=== PATIENT | female | born 1985 | race Caucasian/White ===

== ENCOUNTER 2017-09-04 08:54 | Emergency (ER) | payer BC, OTHER ==
[~2017-09-04] VITALS: Ht 160 cm; Wt 70.3 kg
[~2017-09-04 08:54] MED LIST: DEXILANT60 MG PO; METFORMIN HCL500 MG PO; PROGESTERONE100 MG PO; XANAX0.5 MG; XANAX0.5 MG PO
[2017-09-04] MEDS ORDERED: FAMOTIDINE 20 MG/2 ML VIAL IV STA (09:53)
[2017-09-04] MEDS ORDERED: ONDANSETRON HCL INJ 2 MG/ML VIAL IV STA (09:56)
[2017-09-04] MEDS ORDERED: MAGNESIUM/ALUMINUM/SIMETHICONE 30 ML UDC PO ONE (10:00)
[2017-09-04] MEDS ORDERED: LIDOCAINE VISC 2% SOLN 15 ML UDC PO ONE (10:00)
[2017-09-04] MEDS ORDERED: ONDANSETRON HCL 4 MG ORAL DISINTEGRATING TAB SL ONE (10:30)
[2017-09-04 10:31] LABS: BASOPHILS # (AUTO) 0.1 (0.0-0.1); BASOPHILS % 0.4 % (0.0-1.0); CLARITY,URINE CLEAR (CLEAR); COLOR,URINE YELLOW (YELLOW); EOSINOPHILS # (AUTO) 0.1 (0.0-0.4); EOSINOPHILS % 0.5 % (0.0-6.0); HEMATOCRIT 41.6 % (34.2-44.1); HEMOGLOBIN 13.8 g/dL (12.0-16.0); LEUKOCYTE ESTERASE ,URINE NEGATIVE (NEGATIVE); LYMPHOCYTES # (AUTO) 1.8 (1.0-3.2); LYMPHOCYTES % 14.5 % (18.0-39.1); MEAN CORPUSCULAR HEMOGLOBIN 28.1 pg (28-32); MEAN CORPUSCULAR HGB CONC 33.2 g/dL (31-35); MEAN CORPUSCULAR VOLUME 84.7 fL (81-99); MONOCYTES # (AUTO) 0.8 (0.2-0.8); MONOCYTES % 6.1 % (4.4-11.3); NEUTROPHILS # (AUTO) 9.7 (2.1-6.9); NEUTROPHILS % 78.2 % (38.7-80.0); NITRITE,URINE NEGATIVE (NEGATIVE); PLATELET COUNT 373 x10e3/uL (140-360); RED BLOOD COUNT 4.91 x10e6/uL (3.6-5.1); RED CELL DISTRIBUTION WIDTH 12.6 % (11.7-14.4)
[2017-09-04 10:32] LABS: BILIRUBIN,URINE NEGATIVE (NEGATIVE); KETONES,URINE NEGATIVE (NEGATIVE); PREGNANCY TEST, URINE NEGATIVE (NEGATIVE); PROTEIN,URINE DIPSTICK NEGATIVE (NEGATIVE); URINE UROBILINOGEN 0.2 mg/dL (0.2 - 1)
[2017-09-04 10:44] LABS: EPITHELIAL CELLS,URINE RARE /LPF; WBC,URINE (MAN) 0-5 /HPF (0-5)
[2017-09-04 10:47] LABS: ALANINE AMINOTRANSFERASE 256 IU/L (0-55); ALBUMIN 3.9 g/dL (3.5-5.0); ALBUMIN/GLOBULIN RATIO 0.8 (0.8-2.0); ALKALINE PHOSPHATASE 208 IU/L (40-150); AMYLASE 56 U/L (25-125); ANION GAP 17.5 mmol/L (8-16); BLOOD UREA NITROGEN 12 mg/dL (7-26); BUN/CREATININE RATIO 14 (6-25); CALCIUM 10.4 mg/dL (8.4-10.2); CARBON DIOXIDE 24 mmol/L (22-29); CHLORIDE 104 mmol/L (98-107); CREATININE, SERUM 0.83 mg/dL (0.57-1.11); EST GLOMERULAR FILTRATION RATE > 60 ML/MIN (60-); GLUCOSE 102 mg/dL (74-118); LIPASE 46 U/L (8-78); POTASSIUM 4.5 mmol/L (3.5-5.1); SODIUM 141 mmol/L (136-145)
[2017-09-04 10:52] LABS: CREATINE KINASE 56 IU/L (29-168)
[2017-09-04] MEDS ORDERED: KETOROLAC TROMETHAMINE 30 MG/ML VIAL IV STA (11:17)
--- NOTE | 2017-09-04 14:55 | Diagnostic Imaging Report ---
PROCEDURE:LIMITED ABDOMINAL ULTRASOUND COMPARISON:[facility], US, US ABDOMEN COMPLETE, 01/26/2016, 2:49. INDICATIONS:epigastric pain FINDINGS: Liver: 15.3 cm. Increased hepatic parenchymal echogenicity. No focal mass. Main portal vein: 0.9 cm. Hepatopetal flow. Gallbladder: Multiple, mobile, echogenic, shadowing foci are noted in the gallbladder lumen, consistent with small stones. No sludge. No wall thickening, or pericholecystic fluid. Common Bile Duct: 0.7 cm. No echogenic filling defect. Sonographic Powell's sign: Negative Right kidney: 9.3 cm. No solid or cystic mass, echogenic calculi, or hydronephrosis. Normal parenchymal echogenicity. Pancreas: The visualized portions of the pancreas are normal. Inferior vena cava: Normal. Aorta: Normal. Ascites: None. CONCLUSION: 1. cholelithiasis, without sonographic evidence of cholecystitis. 2. Borderline to minimal dilation of the common bile duct. No intraluminal filling defects are identified. MRI abdomen/MRCP is recommended if there is clinical concern for choledocholithiasis. 3. Borderline enlarged liver size, with diffuse steatosis. No focal lesions. Kody Guo M.D. Dictated by: Kody Guo M.D. on 09/04/2017 at 14:56 Electronically approved by: Kody Guo M.D. on 09/04/2017 at 14:56
[2017-09-04 15:21] VITALS: BP 114/79
== END 2017-09-04 15:41 | disposition home or self-care (01) ==
LOC: ER 08:54
DX: R10.13 Epigastric pain (principal); R11.0 Nausea; K80.20 Calculus of gallbladder without cholecystitis without obstruction; K21.9 Gastro-esophageal reflux disease without esophagitis; E28.2 Polycystic ovarian syndrome
CPT/HCPCS: 36415; 76705; 80053; 81001; 81025; 82150; 82550; 82553; 83690; 84484; 85025; 93005; 99284; J1885

== ENCOUNTER 2017-09-06 09:53 | Inpatient (IN) | payer BC, OTHER ==
[~2017-09-06] VITALS: Ht 160 cm; Wt 73.1 kg
--- OUTSIDE RECORDS SUMMARY | 2017-09-06 09:56 | XMS REPORT ---
Author Author [facility] Address Unknown Phone Unavailable Care Team Providers Care Student Officer Name Role Phone LIZET VALDEZ Unavailable Unavailable Problems This patient has no known problems. Allergies, Adverse Reactions, Alerts This patient has no known allergies or adverse reactions. Medications This patient has no known medications. Results Test Description Test Time Test Comments Text Results Atomic Results Result Comments US ABDOMEN LIMITED [place] [address] Patient Name: KARISSA VASQUEZ MR #: [id number] : 1985 Age/Sex: 32/F Req #: [id number] Adm Physician: Ordered by: LIZET VALDEZ MD Report #: [id number] Location: ER Room/Bed: Procedure: [id number] US/US ABDOMEN LIMITED Exam Date: 09/04/17 Exam Time: 1343 REPORT STATUS: Signed PROCEDURE: LIMITED ABDOMINAL ULTRASOUND COMPARISON: [facility], US, US ABDOMEN COMPLETE, 01/26/2016, 2:49. INDICATIONS: epigastric pain FINDINGS: Liver: 15.3 cm. Increased hepatic parenchymal echogenicity. No focal mass. Main portal vein: 0.9 cm. Hepatopetal flow. Gallbladder: Multiple, mobile, echogenic, shadowing foci are noted in the gallbladder lumen, consistent with small stones. No sludge. No wall thickening, or pericholecystic fluid. Common Bile Duct: 0.7 cm. No echogenic filling defect. Sonographic Powell's sign: Negative Right kidney: 9.3 cm. No solid or cystic mass, echogenic calculi, or hydronephrosis. Normal parenchymal echogenicity. Pancreas: The visualized portions of the pancreas are normal. Inferior vena cava: Normal. Aorta: Normal. Ascites: None. CONCLUSION: 1. cholelithiasis, without sonographic evidence of cholecystitis. 2. Borderline to minimal dilation of the common bile duct. No intraluminal filling defects are identified. MRI abdomen/MRCP is recommended if there is clinical concern for choledocholithiasis. 3. Borderline enlarged liver size, with diffuse steatosis. No focal lesions. Rachel Guo M.D. Dictated by: Rachel Guo M.D. on 09/04/2017 at 14:56 Electronically approved by: Rachel Guo M.D. on 09/04/2017 at 14:56 Dictated By: RACHEL GUO MD [id number] Transcribed By: HENRY on 09/04/17 1456 COPY TO: LIZET VALDEZ MD
--- OUTSIDE RECORDS SUMMARY | 2017-09-06 09:56 | XMS REPORT | Continuity of Care Document ---
Author Author [facility] Organization [facility] Address [address] [place] [address] Phone Unavailable Care Team Providers Care It Consultant Name Role Phone NO, PCP PCP Unavailable Insurance Providers Guarantor Amanda Arnold Address [address] [place] [address] Email [email or web address] Payer [facility] Policy Number [id number] Subscriber's Name JameAmanda Faust Relationship 18 Self / Same As Patient Group Number [id number] Advance Directives Directive Response Recorded Date/Time Does the patient have an advance directive? No 06/18/13 2:27pm If yes, is advance directive on file with [facility]? No 06/18/13 2:27pm If not on file with [facility] will patient provide a copy? No 06/18/13 2:27pm Do you have a Directive to Physician? No 09/04/17 10:11am Do you have a Medical Power of Business Education Instructor? No 09/04/17 10:11am Do you have an out of hospital Do Not Resuscitate Order? No 09/04/17 10:11am Do you have any special needs we should be aware of? No 09/04/17 10:11am Do you have a support person here with you today? Yes 09/04/17 10:11am Did patient receive Notice of Privacy Practices? Yes 09/04/17 10:11am Did patient receive patient rights and responsibilities? Yes 09/04/17 10:11am Problems No problem information available. Medications Current Home Medications Medication Dose Units Route Directions Days Qty Instructions Start Date Dexlansoprazole (Dexilant) 60 Mg 60 Mg Oral Daily THERAPEUTIC INTERCHANGE WITH PROTONIX PER [facility] Metformin Hcl 500 Mg Tablet 500 Mg Oral Twice A Day 60 Tab Progesterone,Micronized (Progesterone) 100 Mg Capsule 100 Mg Oral Daily Past Home Medications Medication Directions Ordered Status Alprazolam (Xanax) 0.5 Mg Tablet, as needed for Anxiety Discontinued Alprazolam (Xanax) 0.5 Mg Tablet, 1 Mg Oral As Needed Discontinued Social History No social history information available. Hospital Discharge Instructions No hospital discharge instruction information available. Plan of Care Discharge Date 09/04/17 3:41pm Disposition HOME, SELF-CARE Condition at Discharge Stable Instructions/Education Provided Abdominal Pain - Adult Cholelithiasis Forms Provided Work/School Excuse Prescriptions See Medication Section Referrals BOLIVAR MENDOZA MD Order Date: Call for an appointment Address: [address] [place] [address] [address] [place] [address] DOMENICO AGUILAR MD Order Date: Call for an appointment Address: [address] [place] [address] [address] [place] [address] Additional Instructions/Education Take medication as prescribed Follow up with PCP in about 2 days Return to ER if worsening of symptoms Functional Status No functional status information available. Allergies, Adverse Reactions, Alerts No known allergies. Immunizations No immunization information available. Vital Signs Acute Vital Signs Vital Response Date/Time Pulse Pulse Rate (adult) 63 bpm (60 - 90) 09/04/2017 3:21pm Respiratory Rate 18 bpm (12 - 24) 09/04/2017 3:21pm Blood Pressure 114/79 mm Hg 09/04/2017 3:21pm Height 5 ft 3 in 09/04/2017 9:45am Weight 155 lb 09/04/2017 9:45am Body Mass Index 27.5 kg/m^2 09/04/2017 9:45am Results Laboratory Results Test Name Result Units Flags Reference Collection Date/Time Result Date/ Time Comments White Blood Count 12.42 x10e3/uL H 4.8-10.8 09/04/2017 10:05am 2017 10:32am Red Blood Count 4.91 x10e6/uL 3.6-5.1 09/04/2017 10:09/04/2017 10: 32am Hemoglobin 13.8 g/dL 12.0-16.0 09/04/2017 10:09/04/2017 10:32am Hematocrit 41.6 % 34.2-44.1 09/04/2017 10:09/04/2017 10:32am Mean Corpuscular Volume 84.7 fL 81-99 09/04/2017 10:09/04/2017 10: 32am Mean Corpuscular Hemoglobin 28.1 pg 28-32 09/04/2017 10:2017 10:32am Mean Corpuscular Hemoglobin Concent 33.2 g/dL 31-35 09/04/2017 10:09/04/2017 10:32am Red Cell Distribution Width 12.6 % 11.7-14.4 09/04/2017 10:2017 10:32am Platelet Count 373 x10e3/uL H 140-360 09/04/2017 10:09/04/2017 10: 32am Neutrophils (%) (Auto) 78.2 % 38.7-80.0 09/04/2017 10:09/04/2017 10:32am Lymphocytes (%) (Auto) 14.5 % L 18.0-39.1 09/04/2017 10:09/04/2017 10:32am Monocytes (%) (Auto) 6.1 % 4.4-11.3 09/04/2017 10:09/04/2017 10: 32am Eosinophils (%) (Auto) 0.5 % 0.0-6.0 09/04/2017 10:09/04/2017 10: 32am Basophils (%) (Auto) 0.4 % 0.0-1.0 09/04/2017 10:09/04/2017 10: 32am IM GRANULOCYTES % 0.3 % 0.0-1.0 09/04/2017 10:09/04/2017 10:32am Neutrophils # (Auto) 9.7 H 2.1-6.9 09/04/2017 10:09/04/2017 10: 32am Lymphocytes # (Auto) 1.8 1.0-3.2 09/04/2017 10:0509/04/2017 10: 32am Monocytes # (Auto) 0.8 0.2-0.8 09/04/2017 10:0509/04/2017 10:32am Eosinophils # (Auto) 0.1 0.0-0.4 09/04/2017 10:09/04/2017 10: 32am Basophils # (Auto) 0.1 0.0-0.1 09/04/2017 10:09/04/2017 10:32am Absolute Immature Granulocyte (auto 0.04 x10e3/uL 0-0.1 09/04/2017 10: 0509/04/2017 10:32am Urine Color YELLOW YELLOW 09/04/2017 10:09/04/2017 10:32am Urine Clarity CLEAR CLEAR 09/04/2017 10:09/04/2017 10:32am Urine Specific [place] 1.020 1.010-1.025 09/04/2017 10:052017 10:32am Urine pH 8 H 5 - 7 09/04/2017 10:0509/04/2017 10:32am Urine Leukocyte Esterase NEGATIVE NEGATIVE 09/04/2017 10:052017 10:32am Urine Nitrite NEGATIVE NEGATIVE 09/04/2017 10:0509/04/2017 10: 32am Urine Protein NEGATIVE NEGATIVE 09/04/2017 10:0509/04/2017 10: 32am Urine Glucose (UA) NEGATIVE NEGATIVE 09/04/2017 10:0509/04/2017 10 :32am Urine Ketones NEGATIVE NEGATIVE 09/04/2017 10:0509/04/2017 10: 32am Urine Urobilinogen 0.2 mg/dL 0.2 - 1 09/04/2017 10:0509/04/2017 10: 32am Urine Bilirubin NEGATIVE NEGATIVE 09/04/2017 10:0509/04/2017 10: 32am Urine Blood TRACE H NEGATIVE 09/04/2017 10:0509/04/2017 10:32am Urine WBC 0-5 /HPF 0-5 09/04/2017 10:0509/04/2017 10:45am Urine RBC 6-10 /HPF H 0-5 09/04/2017 10:0509/04/2017 10:45am Urine Bacteria NONE /HPF NONE 09/04/2017 10:09/04/2017 10:45am Urine Epithelial Cells RARE /LPF NONE 09/04/2017 10:09/04/2017 10: 45am Urine Test NEGATIVE NEGATIVE 09/04/2017 10:09/04/2017 10:32am Sodium Level 141 mmol/L 136-145 09/04/2017 10:09/04/2017 10:49am Potassium Level 4.5 mmol/L 3.5-5.1 09/04/2017 10:09/04/2017 10: 49am Chloride Level 104 mmol/L 98-107 09/04/2017 10:09/04/2017 10:49am Carbon Dioxide Level 24 mmol/L 22-29 09/04/2017 10:09/04/2017 10: 49am Anion Gap 17.5 mmol/L H 8-16 09/04/2017 10:09/04/2017 10:49am Blood Urea Nitrogen 12 mg/dL 7-26 09/04/2017 10:09/04/2017 10: 49am Creatinine 0.83 mg/dL 0.57-1.11 09/04/2017 10:09/04/2017 10:49am BUN/Creatinine Ratio 14 6-25 09/04/2017 10:09/04/2017 10:49am Estimat Glomerular Filtration Rate > 60 ML/MIN 60- 09/04/2017 10:09/04/2017 10:49am Ranges were taken from the National Kidney Disease Education Program and the National Kidney Foundation literature. Reference ranges: 60 or greater: Normal 16-59 (for 3 consecutive months): Chronic kidney disease 15 or less: Kidney failure Glucose Level 102 mg/dL 74-118 09/04/2017 10:09/04/2017 10:49am Calcium Level 10.4 mg/dL H 8.4-10.2 09/04/2017 10:09/04/2017 10: 49am Total Bilirubin 1.6 mg/dL H 0.2-1.2 09/04/2017 10:09/04/2017 10: 49am Aspartate Amino Transf (AST/SGOT) 394 IU/L H 5-34 09/04/2017 10:2018 10:49am Alanine Aminotransferase (ALT/SGPT) 256 IU/L H 0-55 09/04/2017 10:05am 09/04/2017 10:49am Total Protein 8.9 g/dL H 6.5-8.1 09/04/2017 10:0509/04/2017 10:49am Albumin 3.9 g/dL 3.5-5.0 09/04/2017 10:05am 09/04/2017 10:49am Globulin 5.0 g/dL H 2.3-3.5 09/04/2017 10:05am 09/04/2017 10:49am Albumin/Globulin Ratio 0.8 0.8-2.0 09/04/2017 10:05am 09/04/2017 10: 49am Alkaline Phosphatase 208 IU/L H 40-150 09/04/2017 10:05am 09/04/2017 10: 49am Creatine Kinase 56 IU/L 29-168 09/04/2017 10:05am 09/04/2017 10:55am Creatine Kinase MB 0.50 ng/mL 0-5.0 09/04/2017 10:05am 09/04/2017 10: 59am Troponin I < 0.001 ng/mL 0-0.300 09/04/2017 10:05am 09/04/2017 10:59am Amylase Level 56 U/L 25-125 09/04/2017 10:05am 09/04/2017 10:49am Lipase 46 U/L 8-78 09/04/2017 10:05am 09/04/2017 10:49am Procedures Procedure Status Date Provider(s) US abdomen limited Active 09/04/17 LIZET VALDEZ MD Encounters Encounter Location Arrival/Admit Date Discharge/Depart Date Attending Provider Departed Emergency Room [facility] 09/04/17 8:54am 3:41pm LIZET VALDEZ MD
[2017-09-06] MEDS ORDERED: SODIUM CHLORIDE 0.9% 1000ML 1,000 ML IV STA (10:06)
[2017-09-06] MEDS ORDERED: PRENATAL TABLE1 EAC1 PO (10:06)
[2017-09-06] MEDS ORDERED: ONDANSETRON HCL INJ 2 MG/ML VIAL IV STA (10:06)
[2017-09-06] MEDS ORDERED: PANTOPRAZOLE 40 MG 10ML VIAL IV STA (10:06)
[2017-09-06 10:33] LABS: BASOPHILS % 0.4 % (0.0-1.0); EOSINOPHILS # (AUTO) 0.1 (0.0-0.4); EOSINOPHILS % 0.5 % (0.0-6.0); HEMATOCRIT 39.2 % (34.2-44.1); HEMOGLOBIN 12.9 g/dL (12.0-16.0); LYMPHOCYTES # (AUTO) 1.3 (1.0-3.2); MEAN CORPUSCULAR HEMOGLOBIN 28.4 pg (28-32); MEAN CORPUSCULAR HGB CONC 32.9 g/dL (31-35); MEAN CORPUSCULAR VOLUME 86.3 fL (81-99); MONOCYTES # (AUTO) 0.5 (0.2-0.8); NEUTROPHILS # (AUTO) 7.4 (2.1-6.9); NEUTROPHILS % 79.8 % (38.7-80.0); PLATELET COUNT 328 x10e3/uL (140-360); RED BLOOD COUNT 4.54 x10e6/uL (3.6-5.1); RED CELL DISTRIBUTION WIDTH 12.7 % (11.7-14.4)
[2017-09-06] MEDS ORDERED: ONDANSETRON HCL 4 MG ORAL DISINTEGRATING TAB PO ONE (10:45)
[2017-09-06 10:54] LABS: ALANINE AMINOTRANSFERASE 974 IU/L (0-55); ALBUMIN 3.7 g/dL (3.5-5.0); ALBUMIN/GLOBULIN RATIO 0.8 (0.8-2.0); ALKALINE PHOSPHATASE 397 IU/L (40-150); AMYLASE 37 U/L (25-125); ANION GAP 17.9 mmol/L (8-16); BLOOD UREA NITROGEN 14 mg/dL (7-26); BUN/CREATININE RATIO 16 (6-25); CALCIUM 9.9 mg/dL (8.4-10.2); CARBON DIOXIDE 25 mmol/L (22-29); CHLORIDE 100 mmol/L (98-107); EST GLOMERULAR FILTRATION RATE > 60 ML/MIN (60-); GLUCOSE 131 mg/dL (74-118); LIPASE 16 U/L (8-78); POTASSIUM 3.9 mmol/L (3.5-5.1); SODIUM 139 mmol/L (136-145)
[2017-09-06 10:57] LABS: CLARITY,URINE SL CLOUDY (CLEAR); COLOR,URINE YELLOW (YELLOW)
[2017-09-06 10:58] LABS: BILIRUBIN,URINE 3+ (NEGATIVE); KETONES,URINE 2+ (NEGATIVE); LEUKOCYTE ESTERASE ,URINE 1+ (NEGATIVE); NITRITE,URINE NEGATIVE (NEGATIVE); PROTEIN,URINE DIPSTICK 1+ (NEGATIVE); URINE UROBILINOGEN 0.2 mg/dL (0.2 - 1)
[2017-09-06 11:01] LABS: BACTERIA,URINE MODERATE /HPF; EPITHELIAL CELLS,URINE MODERATE /LPF
[2017-09-06] MEDS ORDERED: PROMETHAZINE 12.5MG/ NACL 0.9% 12.5 MG/50 ML BAG IV ONE (11:30)
[2017-09-06] MEDS ORDERED: HYDROMORPHONE 1MG/1ML INJ IV PRN (12:00)
[2017-09-06] MEDS ORDERED: ONDANSETRON HCL INJ 2 MG/ML VIAL IV PRN (12:00)
[2017-09-06] MEDS ORDERED: PIPER-TAZ 3.375 GM / NS 50ML IV SCH (12:00)
[2017-09-06] MEDS ORDERED: ONDANSETRON HCL 4 MG ORAL DISINTEGRATING TAB SL PRN (12:45)
--- NOTE | 2017-09-06 14:14 | Diagnostic Imaging Report ---
EXAM: Magnetic Resonance Cholangiopancreatography (M.R.C.P.) INDICATION: \S\R/O CBD STONE COMPARISON: Abdominal ultrasound 09/04/2017 TECHNIQUE: Multiplanar, multisequence MRCP was performed, with sequences including coronal turbo spin-echo T1-weighted scans, [facility] MRCP scans, coronal spin, coronal MPR 2, SMRCP 3D HR, [facility] MRCP [place]. IV Contrast: None Oral Contrast: None Medications: None COMPLICATIONS: None FINDINGS: LOWER THORAX: Unremarkable. HEPATOBILIARY: No focal hepatic lesions. Common bile duct measures up to 0.8 cm with gradual tapering into the pancreatic head. There is extension into the common hepatic duct at the level of the liver measuring 0.8 cm. GALLBLADDER: Scattered gallstones and sludge. No wall thickening. SPLEEN: No splenomegaly. PANCREAS: No focal masses or ductal dilatation. ADRENALS: No adrenal nodules KIDNEYS/URETERS: No hydronephrosis. No cystic or solid mass lesions. No stones. GI TRACT: No abnormal distention, wall thickening, or evidence of bowel obstruction. LYMPH NODES: No lymphadenopathy. VESSELS: Unremarkable. PERITONEUM / RETROPERITONEUM: No free air or fluid. BONES: Unremarkable. SOFT TISSUES: Unremarkable. IMPRESSION: 1. Dilated common hepatic and bile duct measuring up to 0.8 cm with gradual tapering into the pancreas. No choledocholithiasis is identified. 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 2. Cholelithiasis without evidence of acute cholecystitis. Signed by: Dr. Jesus Alicea M.D. on 09/06/2017 2:10 PM
[2017-09-06 14:40] VITALS: BP 117/74
[2017-09-06] MEDS: D5.45%NS/KCL 20MEQ 1,000 ML IV SCH (15:03)
[2017-09-06 16:00] VITALS: BP 119/69
[2017-09-06] MEDS: LEVOFLOXACIN 500MG/D5W 100ML 100 ML IV SCH (16:23)
[2017-09-06] MEDS: HYDROCODONE/APAP 10MG-325MG TAB PO PRN ×2 (18:23→23:00)
[2017-09-06 20:00] VITALS: BP 124/78
[2017-09-06] MEDS ORDERED: SODIUM CHLORIDE 0.9% 50ML 50 ML ONE (22:04)
[2017-09-06 23:11] VITALS: BP 124/78
[2017-09-07] VITALS (7 sets, daily range): BP systolic 96–115; BP diastolic 51–77
[2017-09-07] MEDS: PROMETHAZINE HCL (IM) 25 MG/ML VIAL IV PRN ×3 (00:10→21:58)
[2017-09-07] MEDS: D5.45%NS/KCL 20MEQ 1,000 ML IV SCH ×2 (04:40→14:36)
[2017-09-07] MEDS: FAMOTIDINE 20 MG/2 ML VIAL IV SCH ×3 (06:09→16:45)
[2017-09-07 06:30] LABS: BASOPHILS % 0.5 % (0.0-1.0); EOSINOPHILS # (AUTO) 0.1 (0.0-0.4); EOSINOPHILS % 2.1 % (0.0-6.0); HEMATOCRIT 36.7 % (34.2-44.1); HEMOGLOBIN 11.6 g/dL (12.0-16.0); LYMPHOCYTES # (AUTO) 2.4 (1.0-3.2); LYMPHOCYTES % 41.1 % (18.0-39.1); MEAN CORPUSCULAR HGB CONC 31.6 g/dL (31-35); MEAN CORPUSCULAR VOLUME 88.6 fL (81-99); MONOCYTES # (AUTO) 0.2 (0.2-0.8); MONOCYTES % 3.5 % (4.4-11.3); NEUTROPHILS # (AUTO) 2.9 (2.1-6.9); NEUTROPHILS % 50.2 % (38.7-80.0); PLATELET COUNT 209 x10e3/uL (140-360); RED BLOOD COUNT 4.14 x10e6/uL (3.6-5.1); RED CELL DISTRIBUTION WIDTH 12.9 % (11.7-14.4)
[2017-09-07 06:51] LABS: INR 1.1; PARTIAL THROMBOPLASTIN TIME 30.2 seconds (23.8-35.5); PROTHROMBIN TIME 13.4 seconds (11.9-14.5)
[2017-09-07 07:06] LABS: ALANINE AMINOTRANSFERASE 567 IU/L (0-55); ALBUMIN 2.9 g/dL (3.5-5.0); ALBUMIN/GLOBULIN RATIO 0.8 (0.8-2.0); ALKALINE PHOSPHATASE 292 IU/L (40-150); AMYLASE 36 U/L (25-125); ANION GAP 10.3 mmol/L (8-16); BLOOD UREA NITROGEN 9 mg/dL (7-26); BUN/CREATININE RATIO 10 (6-25); CALCIUM 9.3 mg/dL (8.4-10.2); CARBON DIOXIDE 28 mmol/L (22-29); CHLORIDE 104 mmol/L (98-107); CREATININE, SERUM 0.93 mg/dL (0.57-1.11); EST GLOMERULAR FILTRATION RATE > 60 ML/MIN (60-); GLUCOSE 94 mg/dL (74-118); LIPASE 20 U/L (8-78); POTASSIUM 4.3 mmol/L (3.5-5.1); SODIUM 138 mmol/L (136-145)
[2017-09-07 07:31] LABS: BAND NEUTROPHILS % (MANUAL) 2 %; LYMPHOCYTES % (MANUAL) 37 % (19-48); MONOCYTES % (MANUAL) 3 % (3.4-9.0); NEUTROPHILS % (MANUAL) 58 % (40-74); PLATELET ESTIMATE ADEQUATE; PLATELET MORPHOLOGY COMMENT NORMAL; RBC MORPHOLOGY COMMENT NORMAL
[2017-09-07] MEDS: LEVOFLOXACIN 500MG/D5W 100ML 100 ML IV SCH (14:53)
[2017-09-07] MEDS: HYDROCODONE/APAP 10MG-325MG TAB PO PRN ×2 (14:54→21:58)
[2017-09-07] MEDS ORDERED: CEFTRIAXONE SOD 1 GM VIAL IV SCH (18:30)
[2017-09-07] MEDS ORDERED: SODIUM CHLORIDE 0.9% 50ML 50 ML ONE (21:54)
[2017-09-08] VITALS (7 sets, daily range): BP systolic 113–132; BP diastolic 68–83
[2017-09-08 06:50] LABS: BASOPHILS % 0.8 % (0.0-1.0); EOSINOPHILS # (AUTO) 0.2 (0.0-0.4); EOSINOPHILS % 4.2 % (0.0-6.0); HEMATOCRIT 34.5 % (34.2-44.1); HEMOGLOBIN 11.2 g/dL (12.0-16.0); LYMPHOCYTES # (AUTO) 1.8 (1.0-3.2); LYMPHOCYTES % 35.3 % (18.0-39.1); MEAN CORPUSCULAR HEMOGLOBIN 28.7 pg (28-32); MEAN CORPUSCULAR HGB CONC 32.5 g/dL (31-35); MEAN CORPUSCULAR VOLUME 88.5 fL (81-99); MONOCYTES # (AUTO) 0.6 (0.2-0.8); MONOCYTES % 11.5 % (4.4-11.3); NEUTROPHILS # (AUTO) 2.5 (2.1-6.9); NEUTROPHILS % 47.8 % (38.7-80.0); PLATELET COUNT 231 x10e3/uL (140-360)
[2017-09-08 07:18] LABS: ALANINE AMINOTRANSFERASE 454 IU/L (0-55); ALKALINE PHOSPHATASE 315 IU/L (40-150); ANION GAP 12.1 mmol/L (8-16); BILIRUBIN,DIRECT 2.4 mg/dL (0.0-0.5); BLOOD UREA NITROGEN 6 mg/dL (7-26); BUN/CREATININE RATIO 7 (6-25); CALCIUM 9.2 mg/dL (8.4-10.2); CARBON DIOXIDE 27 mmol/L (22-29); CHLORIDE 106 mmol/L (98-107); CREATININE, SERUM 0.88 mg/dL (0.57-1.11); EST GLOMERULAR FILTRATION RATE > 60 ML/MIN (60-); GLUCOSE 98 mg/dL (74-118); POTASSIUM 4.1 mmol/L (3.5-5.1); SODIUM 141 mmol/L (136-145)
[2017-09-08] MEDS: FAMOTIDINE 20 MG/2 ML VIAL IV SCH ×2 (07:44→17:00)
[2017-09-08] MEDS: D5.45%NS/KCL 20MEQ 1,000 ML IV SCH ×2 (09:15→17:16)
[2017-09-08] MEDS ORDERED: BUPIVACAINE 0.25%/EPI 30ML SDV INJ ONE (14:54)
[2017-09-08] MEDS ORDERED: IOPAMIDOL 610MG/1ML 300 MG/ML VIAL IV ONE (14:54)
[2017-09-08] MEDS ORDERED: ACETAMINOPHEN 1000 MG/100 ML IV PRN (16:45)
[2017-09-08] MEDS ORDERED: FENTANYL CITRATE/PF 100MCG/2 ML INJ ONE ×2 (17:14→19:39)
[2017-09-08] MEDS ORDERED: METOCLOPRAMIDE HCL 10 MG/2ML VIAL ONE (17:14)
[2017-09-08] MEDS: HYDROMORPHONE 2MG/ML INJ IV PRN (18:04)
[2017-09-08] MEDS: CEFTRIAXONE SOD 1 GM VIAL IV SCH (18:19)
[2017-09-08] MEDS: PANTOPRAZOLE 40 MG 10ML VIAL IV SCH (18:19)
--- NOTE | 2017-09-08 18:24 | Operative Report ---
DATE OF PROCEDURE: September 08, 2017 PREOPERATIVE DIAGNOSES 1. Cholecystitis. 2. Cholelithiasis. 3. Rule out common bile duct stones. POSTOPERATIVE DIAGNOSES 1. Cholecystitis. 2. Cholelithiasis. 3. Choledocholithiasis. OPERATION PERFORMED: Laparoscopic cholecystectomy with intraoperative cholangiograms. DISHWASHING MACHINE OPERATOR: EMILIA Reed. ANESTHESIA: General. COMPLICATIONS: None. ESTIMATED BLOOD LOSS: Minimal. DESCRIPTION OF PROCEDURE: With the patient lying in bed in supine position under good general endotracheal anesthesia, the abdomen was prepped with Betadine solution and draped in the usual manner. A Veress needle was introduced into the umbilicus and pneumoperitoneum was established without any difficulty. An 11-mm trocar was placed into the umbilicus and a 10-mm video laparoscope was placed into the intraabdominal cavity. Under direct vision, three 5-mm trocars were placed in the right subcostal region. Video laparoscopy at this point revealed acutely distended, tense gallbladder that appeared to contain multiple stones. The rest of the abdominal exploration was within normal limits. The peritoneum overlying the neck of the gallbladder was then opened and the cystic duct was identified. The cystic duct was followed to its junction with the common duct. The cystic duct was then circumferentially dissected away from the common duct and a clip was placed at the neck of the gallbladder. A small opening was then made into the cystic duct and a stone was retrieved from the distal cystic duct. After this was done, a cholangiocatheter was placed into the cystic duct and using fluoroscopy, half-strength dye was injected into the biliary tree. This showed no flow of dye into the duodenum with meniscus sign at the distal common duct representing what appeared to be a small stone impacted in the distal common duct. There were no other defects identified. The cholangiocatheter was then removed and the cystic duct was ligated with an Endoloop of 0-PDS and 2 clips. The cystic artery was similarly doubly clipped and divided. The gallbladder was then slowly and carefully taken off of the liver bed using the cautery scissors and perfect hemostasis was ascertained. The gallbladder was placed in a pouch and removed through the umbilicus without any difficulty. Video laparoscopy was then again carried out. The liver bed was found to perfectly dry. All of the excess fluid was aspirated. The pneumoperitoneum was evacuated and all the trocars were removed under direct vision. The midline fascia at the umbilicus was then closed with a [id number] of 0-Vicryl. All layers were infiltrated on the way out with solution of 0.25% Marcaine. Subcutaneous tissue was approximated with 3-0 Vicryl and the skin was closed with subcuticular 5-0 Vicryl. Benzoin, Steri-Strips and Band-Aids were applied. The sponge, lap and needle count was correct. The patient tolerated the procedure well and returned to the recovery room in stable condition. The patient will have to undergo an ERCP tomorrow for removal of the distal common bile duct stone which he was aware of was the possibility before the surgery. Job#: [id number] ABRAM
[2017-09-08] MEDS ORDERED: GLYCOPYRROLATE INJ 1MG/ 5 ML SYR ONE (18:44)
[2017-09-08] MEDS ORDERED: SEVOFLURANE INHAL SOLN 250 ML PEN BTL ONE (18:44)
[2017-09-08] MEDS ORDERED: PROPOFOL IV EMULSION 10 MG/ML 20 ML VIAL ONE (18:44)
[2017-09-08] MEDS ORDERED: DEXAMETHASONE SOD PHOS INJ 4 MG/ML VIAL ONE (18:44)
[2017-09-08] MEDS ORDERED: ONDANSETRON HCL INJ 2 MG/ML VIAL ONE (18:44)
[2017-09-08] MEDS ORDERED: LIDOCAINE HCL 2% LOCAL INJ 5 ML SDV VIAL INJ ONE (18:44)
[2017-09-08] MEDS ORDERED: ESMOLOL HCL 100MG/10ML 10 MG/ML VIAL ONE (18:44)
[2017-09-08] MEDS ORDERED: NEOSTIGMINE 5 MG/5ML SYR ONE (18:44)
[2017-09-08] MEDS ORDERED: ROCURONIUM BROMIDE 10 MG/ML 5ML VIAL ONE (18:44)
[2017-09-08] MEDS ORDERED: SODIUM CHLORIDE 0.9% 50ML 50 ML ONE (19:02)
[2017-09-08] MEDS: PROMETHAZINE HCL (IM) 25 MG/ML VIAL IV PRN (19:05)
[2017-09-08] MEDS: HYDROCODONE/APAP 10MG-325MG TAB PO PRN (19:20)
[2017-09-08] MEDS ORDERED: MIDAZOLAM HCL 2 MG/2 ML VIAL ONE (19:39)
[2017-09-09] MEDS ORDERED: SODIUM CHLORIDE 0.9% 50ML 50 ML ONE ×5 (00:03→23:26)
[2017-09-09] MEDS: PROMETHAZINE HCL (IM) 25 MG/ML VIAL IV PRN ×5 (00:11→23:32)
[2017-09-09] MEDS: HYDROCODONE/APAP 10MG-325MG TAB PO PRN ×2 (00:11→23:04)
[2017-09-09 00:23] VITALS: BP 114/76
[2017-09-09] MEDS: D5.45%NS/KCL 20MEQ 1,000 ML IV SCH (02:40)
[2017-09-09 05:45] VITALS: BP 115/70
[2017-09-09] MEDS: HYDROMORPHONE 2MG/ML INJ IV PRN ×2 (06:05→10:54)
[2017-09-09 06:11] LABS: BASOPHILS % 0.3 % (0.0-1.0); EOSINOPHILS % 0.1 % (0.0-6.0); HEMATOCRIT 36.9 % (34.2-44.1); LYMPHOCYTES # (AUTO) 1.3 (1.0-3.2); LYMPHOCYTES % 16.1 % (18.0-39.1); MEAN CORPUSCULAR HEMOGLOBIN 28.3 pg (28-32); MEAN CORPUSCULAR HGB CONC 32.5 g/dL (31-35); MONOCYTES # (AUTO) 0.9 (0.2-0.8); MONOCYTES % 11.5 % (4.4-11.3); NEUTROPHILS # (AUTO) 5.7 (2.1-6.9); NEUTROPHILS % 71.7 % (38.7-80.0); PLATELET COUNT 289 x10e3/uL (140-360); RED BLOOD COUNT 4.24 x10e6/uL (3.6-5.1); RED CELL DISTRIBUTION WIDTH 13.1 % (11.7-14.4)
[2017-09-09 06:32] LABS: ALANINE AMINOTRANSFERASE 487 IU/L (0-55); ALBUMIN 3.2 g/dL (3.5-5.0); ALBUMIN/GLOBULIN RATIO 0.9 (0.8-2.0); ALKALINE PHOSPHATASE 434 IU/L (40-150); AMYLASE 853 U/L (25-125); ANION GAP 17.6 mmol/L (8-16); BLOOD UREA NITROGEN 6 mg/dL (7-26); BUN/CREATININE RATIO 7 (6-25); CALCIUM 9.5 mg/dL (8.4-10.2); CARBON DIOXIDE 25 mmol/L (22-29); CHLORIDE 103 mmol/L (98-107); CREATININE, SERUM 0.83 mg/dL (0.57-1.11); EST GLOMERULAR FILTRATION RATE > 60 ML/MIN (60-); GLUCOSE 94 mg/dL (74-118); POTASSIUM 4.6 mmol/L (3.5-5.1); SODIUM 141 mmol/L (136-145)
--- NOTE | 2017-09-09 07:12 | Diagnostic Imaging Report ---
This report includes an Addendum and supersedes previous reports for this exam. PROCEDURE:CHOLANGIOGRAM INTROP INDICATION:Cholecystectomy COMPARISON:None. TECHNIQUE:8 fluoroscopic capture images from an intraoperative cholangiogram are provided for interpretation. Fluoroscopy time: 6 seconds. Cumulative air kerma: 0.71 mGy FINDINGS: Opacification of the intra-and extrahepatic biliary tree without filling defect. Normal caliber intrahepatic biliary tree. CONCLUSION: No evidence of choledocholithiasis. Dictated by: Roel Rodarte M.D. on 09/09/2017 at 7:15 Electronically approved by: Roel Rodarte M.D. on 09/09/2017 at 7:15 ADDENDUM: Intraoperative cholangiogram findings were discussed with Dr. Newby. According to Dr. Newby not all the intraoperative images are provided. He states additional images demonstrated a distal meniscus sign suggestive of a small distal stone, as well as delayed CBD emptying. Images provided are significantly limited given the number of images, and time over which images were captured. These images do show contrast within the common bile duct without duodenal filling, but are grossly limited. Clinical correlation needed. Dictated by: Roel Rodarte M.D. on 09/09/2017 at 9:14 Electronically approved by: Roel Rodarte M.D. on 09/09/2017 at 9:14
[2017-09-09 08:00] VITALS: BP 98/65
[2017-09-09] MEDS: FAMOTIDINE 20 MG/2 ML VIAL IV SCH ×2 (09:00→17:45)
--- NOTE | 2017-09-09 09:56 | Diagnostic Imaging Report ---
PROCEDURE:ABDOMEN-1VIEW (KUB) TECHNIQUE:Supine AP abdomen totaling 2 radiographs INDICATION:Post cholangiogram. Abdominal pain. COMPARISON:None. FINDINGS: Contrast from the hepatic and extrahepatic biliary tree from intraoperative cholangiogram of September 08, 2017 is passed into the small bowel. No evidence of residual contrast. 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 Enteric contrast is in the small bowel the right lower quadrant. Normal bowel gas pattern. CONCLUSION: Intraoperative cholangiogram contrast from September 08, 2017 has passed into the small bowel. Dictated by: Roel Rodarte M.D. on 09/09/2017 at 9:58 Electronically approved by: Roel Rodarte M.D. on 09/09/2017 at 9:58
[2017-09-09] MEDS ORDERED: SODIUM CHLORIDE 0.9% 1000ML 1,000 ML IV ONE ×2 (12:00)
[2017-09-09] MEDS ORDERED: IOPAMIDOL 610MG/1ML 300 MG/ML VIAL IV ONE (13:16)
[2017-09-09] MEDS ORDERED: INDOMETHACIN 50 MG SUPP.RECT RC ONE ×2 (13:17→13:53)
[2017-09-09] MEDS ORDERED: MIDAZOLAM HCL 2 MG/2 ML VIAL ONE (14:46)
[2017-09-09] MEDS ORDERED: FENTANYL CITRATE/PF 100MCG/2 ML INJ ONE (14:46)
--- NOTE | 2017-09-09 14:59 | Operative Report ---
DATE OF PROCEDURE: September 09, 2017 REFERRING PHYSICIAN: Dr. Brenda Buenrostro PROCEDURE PERFORMED: Endoscopic retrograde cholangiopancreatography. INDICATIONS FOR PROCEDURE: Patient is status post lap-elie for cholelithiasis, choledocholithiasis, and intraoperative cholangiogram. MEDICATION: Patient was done under MAC. Please see anesthesiologist's note. PROCEDURE: With patient in the prone position, the flexible fiberoptic Olympus side-viewing scope was inserted into the esophagus and advanced all the way to the ampulla. No significant bile was noted to be coming out from the ampullar orifice. The ampulla was squared away in the common bile duct position. Despite multiple attempts and being in a good position, the ampulla could not be cannulated. It felt either it was edematous or there was an impacted stone. Due to the fact that the patient already has pancreatitis, no additional manipulation of the ampulla was carried out. The scope was subsequently withdrawn. Patient tolerated the procedure well. IMPRESSION: Common bile duct could not be cannulated despite several attempts ? secondary to edema versus impacted stone. PLAN: As ordered. Job#: [id number] DG cc: DR. PA RIVERA cc:SALINAS BUSTAMANTE MD
[2017-09-09] MEDS: CEFTRIAXONE SOD 1 GM VIAL IV SCH (15:45)
[2017-09-09] MEDS ORDERED: SODIUM CHLORIDE 0.9% 1000ML 1,000 ML ONE (17:15)
[2017-09-09] MEDS: PANTOPRAZOLE 40 MG 10ML VIAL IV SCH (17:45)
[2017-09-09] MEDS ORDERED: GLUCAGON FOR INJ 1 MG VIAL ONE (18:10)
[2017-09-09] MEDS ORDERED: LIDOCAINE HCL 2% LOCAL INJ 5 ML SDV VIAL INJ ONE (18:10)
[2017-09-09] MEDS ORDERED: PROPOFOL IV EMULSION 10 MG/ML 50 ML VIAL ONE (18:10)
[2017-09-09] MEDS: SODIUM CHLORIDE 0.9% 1000ML 1,000 ML IV SCH ×2 (18:11→23:04)
[2017-09-09 18:36] LABS: ALANINE AMINOTRANSFERASE 390 IU/L (0-55); ALBUMIN 3.1 g/dL (3.5-5.0); ALBUMIN/GLOBULIN RATIO 0.9 (0.8-2.0); ALKALINE PHOSPHATASE 372 IU/L (40-150); ANION GAP 13.9 mmol/L (8-16); BLOOD UREA NITROGEN 10 mg/dL (7-26); BUN/CREATININE RATIO 12 (6-25); CALCIUM 8.6 mg/dL (8.4-10.2); CARBON DIOXIDE 25 mmol/L (22-29); CHLORIDE 106 mmol/L (98-107); CREATININE, SERUM 0.83 mg/dL (0.57-1.11); EST GLOMERULAR FILTRATION RATE > 60 ML/MIN (60-); GLUCOSE 124 mg/dL (74-118); POTASSIUM 3.9 mmol/L (3.5-5.1); SODIUM 141 mmol/L (136-145)
[2017-09-09 20:20] VITALS: BP 111/71
[2017-09-09] MEDS ORDERED: HYDROMORPHONE 1MG/1ML INJ IV PRN (22:30)
[2017-09-10] VITALS: BP 117/71
[2017-09-10] MEDS: SODIUM CHLORIDE 0.9% 1000ML 1,000 ML IV SCH ×8 (00:10→23:30)
[2017-09-10 04:00] VITALS: BP 113/67
[2017-09-10 07:17] LABS: ALBUMIN 2.9 g/dL (3.5-5.0); BILIRUBIN,DIRECT 0.9 mg/dL (0.0-0.5)
[2017-09-10 08:00] VITALS: BP 122/80
[2017-09-10] MEDS: FAMOTIDINE 20 MG/2 ML VIAL IV SCH (08:59)
[2017-09-10] MEDS: HYDROCODONE/APAP 10MG-325MG TAB PO PRN ×3 (10:18→20:57)
[2017-09-10 12:00] VITALS: BP 114/81
[2017-09-10] MEDS: CEFTRIAXONE SOD 1 GM VIAL IV SCH (15:48)
[2017-09-10 16:00] VITALS: BP 126/89
[2017-09-10] MEDS: PANTOPRAZOLE 40 MG 10ML VIAL IV SCH (16:54)
[2017-09-10 20:01] VITALS: BP 125/83
[2017-09-10] MEDS ORDERED: SODIUM CHLORIDE 0.9% 50ML 50 ML ONE (21:01)
[2017-09-10] MEDS: PROMETHAZINE HCL (IM) 25 MG/ML VIAL IV PRN (21:11)
[2017-09-11] VITALS: BP 125/74
[2017-09-11] MEDS: SODIUM CHLORIDE 0.9% 1000ML 1,000 ML IV SCH ×2 (02:50→09:30)
[2017-09-11 04:00] VITALS: BP 121/75
[2017-09-11 07:19] LABS: ALBUMIN 3.1 g/dL (3.5-5.0); BILIRUBIN,DIRECT 0.6 mg/dL (0.0-0.5)
[2017-09-11 08:00] VITALS: BP 133/83
[2017-09-11] MEDS: HYDROCODONE/APAP 10MG-325MG TAB PO PRN ×2 (09:03→14:10)
--- NOTE | 2017-09-11 11:07 | Discharge Summary ---
FINAL DIAGNOSIS: Cholelithiasis with choledocholithiasis with acute pancreatitis. SECONDARY DIAGNOSES 1. History of peptic ulcer disease. 2. History of kidney stones. CONSULTANTS 1. Dr. Yanet Newby, surgeon. 2. Dr. Isabella Sánchez, GI. PROCEDURES/STUDIES PERFORMED 1. Magnetic resonance cholangiopancreatography. 2. Laparoscopic cholecystectomy. 3. Endoscopic retrograde cholangiopancreatography. HISTORY: Per [facility]. HOSPITAL COURSE: The patient was admitted. Given her LFT elevation, MRCP was done, which was negative. Subsequently the patient underwent laparoscopic cholecystectomy with intraoperative cholangiogram, which was abnormal. Subsequently, ERCP was attempted. However, her ampulla was edematous. Therefore, it was not successful. This could be due to passed common bile duct stone. Subsequently, her lipase and LFTs continued to trend better. In fact, on the date of admission, her lipase was normal, and her LFTs are pretty much almost normal now. The patient tolerated milk and cereal this morning. I discussed with Dr. Sánchez this morning, and the patient can be discharged. She will follow up with both Dr. Sánchez and Dr. Newby next week. The patient also received empiric IV Rocephin while here. The patient was advised to be on a low fat diet. The patient was seen and examined today. It took 32 minutes total to discharge this patient. CONDITION ON DISCHARGE: Improved. DISCHARGE MEDICATIONS: Please see medication reconciliation form. NICOLE WINN M.D. Job#: [id number]
[2017-09-11 12:00] VITALS: BP 121/83
[2017-09-11 14:37] VITALS: BP 133/83
== END 2017-09-11 15:07 | disposition home or self-care (01) | DRG 417 ==
LOC: ER 09:53 → ERHOLD 12:23 → MED/SURG2 12:50
PROVIDERS: ADMIT Internal Medicine; ATTEND Internal Medicine
PROC: BF131ZZ Fluoroscopy of Gallbladder and Bile Ducts using Low Osmolar Contrast (ICD-10-PCS; 2017-09-08)
PROC: 0FT44ZZ Resection of Gallbladder, Percutaneous Endoscopic Approach (ICD-10-PCS; principal; 2017-09-08 15:20)
PROC: 0FJB8ZZ Inspection of Hepatobiliary Duct, Via Natural or Artificial Opening Endoscopic (ICD-10-PCS; 2017-09-09)
CPT/HCPCS: 36415; 74018; 74181; 74300; 76000; 80048; 80053; 80076; 81001; 81025; 82150; 83690; 85025; 85610; 85730; 88304; 99284; C1766; J0696; J1100; J1610; J1956; J2001; J2250; J2405; J2543; J2550; J2765; J7030

== ENCOUNTER → 2022-03-25 | Day surgery (SDC) | payer BC, OTHER ==
[~2022-03-25] MED LIST changes: +B COMPLEX1 EACH; +LIDOCAINE HCL 2% LOCAL INJ 5 ML SDV VIAL INJ ONE; +MAGNESIUM OXID400 MG PO; +OMEPRAZOLE-BIC1 EAC1; +PRENATAL TABLE1 EAC1 PO; +PROPOFOL IV EMULSION 10 MG/ML 20 ML VIAL ONE; +VITAMIN C1000 MG PO; +VITAMIN D3125 MCG/1
[2022-03-25 15:20] VITALS: BP 122/75
== END | disposition home or self-care (01) ==
LOC: OR 12:45
PROVIDERS: ATTEND Internal Medicine Gastroenterology
DX: K21.00 Gastro-esophageal reflux disease with esophagitis, without bleeding (principal); K31.7 Polyp of stomach and duodenum; K29.60 Other gastritis without bleeding; K44.9 Diaphragmatic hernia without obstruction or gangrene; K85.90 Acute pancreatitis without necrosis or infection, unspecified; Z71.3 Dietary counseling and surveillance; E28.2 Polycystic ovarian syndrome; F41.9 Anxiety disorder, unspecified; Z79.899 Other long term (current) drug therapy; Z68.34 Body mass index [BMI] 34.0-34.9, adult; Z87.442 Personal history of urinary calculi; Z86.19 Personal history of other infectious and parasitic diseases; Z86.16 Personal history of COVID-19
CPT/HCPCS: 43239; 81025; C9113; J2001